=== PATIENT | female | born 2000 ===

== ENCOUNTER 2021-01-27 13:10 | Emergency (ER) | payer MEDICAID ==
[2021-01-27 13:16] VITALS: BP 136/74
--- NOTE | 2021-01-27 13:52 | Emergency Department Report ---
ED GI Bleed HPI - General Chief complaint: GI Bleed Stated complaint: BLOOD IN STOOL Time Seen by Provider: 01/27/21 13:29 Source: patient Mode of arrival: Ambulatory Limitations: No Limitations - History of Present Illness Initial comments: 20-year-old female with iron deficiency anemia not currently on iron pills without a previous surgical history presents to the hospital complaining of blood in her stool for last 2 days. Patient had an watery/loose stool bowel movement with gross blood. She was able to produce a picture on her cell phone which showed a lot of bright red blood in the toilet bowl mixed with stool. Patient denies abdominal pain, lightheadedness, fever, or history of inflammatory bowel disease. Patient presents with mild tachycardia states she does feel nervous - Related Data Previous Rx's Medication Instructions Recorded Last Taken Type Ciprofloxacin HCl 500 mg PO BID #14 tablet 01/27/21 Unknown Rx metroNIDAZOLE [Flagyl] 500 mg PO Q12HR #14 tab 01/27/21 Unknown Rx predniSONE [Deltasone] 20 mg PO QDAY #25 tab 01/27/21 Unknown Rx Allergies Allergy/AdvReac Type Severity Reaction Status Date / Time No Known Allergies Allergy Verified 01/27/21 13:16 ED Review of Systems ROS: Stated complaint: BLOOD IN STOOL Other details as noted in HPI Comment: All other systems reviewed and negative ED Past Medical Hx - Past Medical History Additional medical history: Iron deficiency anemia - Surgical History Past Surgical History?: No - Medications Home Medications: Home Medications Medication Instructions Recorded Confirmed Last Taken Type Ciprofloxacin HCl 500 mg PO BID #14 tablet 01/27/21 Unknown Rx metroNIDAZOLE [Flagyl] 500 mg PO Q12HR #14 tab 01/27/21 Unknown Rx predniSONE [Deltasone] 20 mg PO QDAY #25 tab 01/27/21 Unknown Rx ED Physical Exam - General Limitations: No Limitations - Other Other exam information: General: No acute distress Head: Atraumatic Eyes: normal appearance ENT: Moist mucous membranes Neck: Normal appearance, no midline tenderness Chest: Clear to auscultation bilaterally CV: Regular rate and rhythm Abdomen: Soft, normal bowel sounds, nontender, nondistended, no rebound or guarding Rectal: No external hemorrhoids, brown stool without gross blood scantly guaiac positive Back: Normal inspection Extremity: Normal inspection, full range of motion Neuro: Alert O x 3, no facial asymmetry, speech clear, no gross motor sensory deficit Psych: Appropriate behavior Skin: No rash ED Course Vital Signs 01/27/21 13:14 Temperature 98.3 F Pulse Rate 100 H Respiratory 16 Rate Blood Pressure 136/74 O2 Sat by Pulse 100 Oximetry ED Medical Decision Making - Lab Data Result diagrams: 01/27/21 14:12 01/27/21 14:11 - Radiology Data Radiology results: report reviewed CT abdomen pelvis w con INDICATION / CLINICAL INFORMATION: rectal bleeding. TECHNIQUE: Axial CT images were obtained through the abdomen and pelvis after IV contrast. All CT scans at this location are performed using CT dose reduction for ALARA by means of automated exposure control. COMPARISON: None available. FINDINGS: LOWER CHEST: No significant abnormality LIVER: No significant abnormality GALLBLADDER/BILIARY TREE: No significant abnormality PANCREAS: No significant abnormality SPLEEN: No significant abnormality ADRENALS: No significant abnormality KIDNEYS / URETER: No significant abnormality URINARY BLADDER: No significant abnormality REPRODUCTIVE ORGANS: No significant abnormality STOMACH / BOWEL: There is extensive mural thickening and inflammatory stranding of the cecum and terminal ileum. There is focal luminal narrowing of the terminal ileum. There is no evidence of bowel obstruction. The appendix is normal. LYMPH NODES: Mild presumably reactive lymphadenopathy within the right lower quadrant adjacent to the inflammatory changes of the ileocecal region. Additional adenopathy of the abdominal regions bilaterally. VASCULATURE: No significant abnormality. OTHER: Trace bland appearing free fluid in the pelvis likely physiologic in this young patient. There is no organized collection. SKELETAL SYSTEM: No acute osseous findings. IMPRESSION: 1. Extensive mural thickening and inflammatory stranding of the cecum and terminal ileum with focal luminal narrowing of the ileum. Findings are suspicious for acute enterocolitis. Inflammatory bowel disease, specifically Crohn's disease, is the diagnosis of exclusion. 2. No other acute abnormality. - Medical Decision Making 20-year-old female complaining of rectal bleeding for the last 2 days without any abdominal or rectal tenderness. Labs reveal microcytic anemia. Patient has a history of iron deficiency anemia and has been noncompliant with her medications. Based on hemoglobin unknown without a previous hemoglobin available in [facility] for comparison. Mild tachycardia upon presentation however, patient also endorses feeling nervous. Patient signed out to Dr Mcdonnell to follow-up CT abdomen pelvis results to rule out inflammatory bowel disease, infection, or diverticular cause of bleeding and to consult GI if necessary versus outpatient follow-up based on results. see Dr Pergrem note (ct reviewed, case d/w gi, dispo on abx and steroids with gi f/u) Critical care attestation.: If time is entered above; I have spent that time in minutes in the direct care of this critically ill patient, excluding procedure time. ED Disposition Clinical Impression: Bloody stools, Inflammatory bowel disease Iron deficiency anemia Qualifiers: Iron deficiency anemia type: unspecified iron deficiency Qualified Code(s): D50.9 - Iron deficiency anemia, unspecified Disposition: 01 HOME / SELF CARE / HOMELESS Is pt being admited?: No Condition: Stable Instructions: Preventing Iron Deficiency Anemia, Adult, Gastrointestinal Bleeding, Crohn's Disease Additional Instructions: Drink plenty water. Have a high-fiber diet. Take all of the antibiotics. Foll ow-up with GI as discussed. See your regular doctor for recheck in addition. Prescriptions: Ciprofloxacin HCl 500 mg PO BID #14 tablet predniSONE [Deltasone] 20 mg PO QDAY #25 tab metroNIDAZOLE [Flagyl] 500 mg PO Q12HR #14 tab Referrals: STAR BILLINGS MD [Staff Physician] - 3-5 Days PRIMARY CARE, [Primary Care Provider] - 3-5 Days Forms: Accompanied Note
[2021-01-27 14:31] LABS: Basophils # (Auto) 0.1 K/mm3 (0.0-0.1); Basophils % (Auto) 0.6 % (0.0-1.8); Eosinophils # (Auto) 0.3 K/mm3 (0.0-0.4); Hematocrit 25.1 % (30.3-42.9); Hemoglobin 7.8 gm/dl (10.1-14.3); Lymphocytes # (Auto) 1.2 K/mm3 (1.2-5.4); Mean Corpuscular HGB Conc 31 % (30-34); Mean Corpuscular Volume 67 fl (79-97); Monocytes # (Auto) 0.5 K/mm3 (0.0-0.8); Monocytes % (Auto) 5.4 % (0.0-7.3); Platelet Count 530 K/mm3 (140-440); Red Blood Count 3.72 M/mm3 (3.65-5.03); Red Cell Distribution Width 18.7 % (13.2-15.2)
[2021-01-27 14:50] LABS: Alanine Aminotransferase 6 units/L (7-56); Albumin 3.4 g/dL (3.9-5); Blood Urea Nitrogen 7 mg/dL (7-17); Calcium 8.9 mg/dL (8.4-10.2); Hemolysis Index 0
[2021-01-27 14:55] LABS: BUN/Creatinine Ratio 14
--- NOTE | 2021-01-27 15:59 | Cat Scan Report ---
CT abdomen pelvis w con INDICATION / CLINICAL INFORMATION: rectal bleeding. TECHNIQUE: Axial CT images were obtained through the abdomen and pelvis after IV contrast. All CT sc ans at this location are performed using CT dose reduction for ALARA by means of automated exposure c ontrol. COMPARISON: None available. FINDINGS: LOWER CHEST: No significant abnormality LIVER: No significant abnormality GALLBLADDER/BILIARY TREE: No significant abnormality PANCREAS: No significant abnormality SPLEEN: No significant abnormality ADRENALS: No significant abnormality KIDNEYS / URETER: No significant abnormality URINARY BLADDER: No significant abnormality REPRODUCTIVE ORGANS: No significant abnormality STOMACH / BOWEL: There is extensive mural thickening and inflammatory stranding of the cecum and term inal ileum. There is focal luminal narrowing of the terminal ileum. There is no evidence of bowel obs truction. The appendix is normal. LYMPH NODES: Mild presumably reactive lymphadenopathy within the right lower quadrant adjacent to the inflammatory changes of the ileocecal region. Additional adenopathy of the abdominal regions bilater ally. VASCULATURE: No significant abnormality. OTHER: Trace bland appearing free fluid in the pelvis likely physiologic in this young patient. There is no organized collection. SKELETAL SYSTEM: No acute osseous findings. IMPRESSION: 1. Extensive mural thickening and inflammatory stranding of the cecum and terminal ileum with focal l uminal narrowing of the ileum. Findings are suspicious for acute enterocolitis. Inflammatory bowel di sease, specifically Crohn's disease, is the diagnosis of exclusion. 2. No other acute abnormality. Signer Name: Je Patel MD Signed: 01/27/2021 3:55 PM Workstation Name: [id number]
--- NOTE | 2021-01-27 17:37 | Emergency Department Report ---
Blank Doc - Documentation Documentation: I had accepted care in signout. CT was pending. CT was noted. Case was discussed with GI. They agree with antibiotic therapy as well as steroids. They will follow the patient up in the office. Patient and family were informed and are up-to-date. They had no further questions and all questions were answered.
== END 2021-01-27 18:12 | disposition home or self-care (01) ==
LOC: ED 13:10
DX: K92.1 Melena (principal); K51.90 Ulcerative colitis, unspecified, without complications; D50.9 Iron deficiency anemia, unspecified
CPT/HCPCS: 36415; 74177; 80053; 82271; 84703; 85025; 86850; 86900; 86901; 99284; Q9967

== ENCOUNTER 2021-06-17 15:50 | Emergency (ER) | payer MEDICAID | END 2021-06-17 19:03 | disposition left against medical advice (07) | LOC: ED 15:50 | DX: J34.89 Other specified disorders of nose and nasal sinuses (principal); Z53.21 Procedure and treatment not carried out due to patient leaving prior to being seen by health care provider ==